=== PATIENT | female | born 1995 | race African-American/Black ===

== ENCOUNTER 2019-06-22 14:36 | Emergency (ER) | payer SELFPAY ==
[~2019-06-22] VITALS: Ht 162.6 cm; Wt 77.1 kg
[2019-06-22 14:40] VITALS: BP 116/60
--- NOTE | 2019-06-22 14:40 | NUR ---
ED Nurse Note: pt brought in to ER from home due to flu like symptoms for a week. pt aao x4 and ambulatory but weak due to general bodyache. c/o coughing with phlem, congestion, dizziness, headache, body ache 8/10. calm and cooperative and coughing consistantly. skin clean and intact. no acute distress noted. room air and vss as documented. 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
[2019-06-22] MEDS ORDERED: Ketorolac 30mg Inj IV ONE ×2 (15:00→16:45)
[2019-06-22] MEDS ORDERED: Omnipaque-300 100ml vial INJ PRN (15:00)
[2019-06-22] MEDS: Albuterol/Ipratropium 3ml neb HHN SCH ×3 (15:05→15:45)
--- NOTE | 2019-06-22 15:05 | NUR ---
Xray at bedside.
[2019-06-22 15:40] LABS: APPEARANCE,URINE SLIGHTLY CLOUDY; BILIRUBIN, URINE NEGATIVE (NEGATIVE); COLOR,URINE PALE YELLOW; GLUCOSE, URINE (UA) NEGATIVE (NEGATIVE); KETONES,URINE NEGATIVE (NEGATIVE); LEUKOCYTE ESTERASE ,URINE 1+ (NEGATIVE); NITRITE,URINE NEGATIVE (NEGATIVE); PH,URINE 7 (4.5-8.0); PROTEIN,URINE NEGATIVE (NEGATIVE); UROBILINOGEN,URINE NORMAL MG/DL (0.0-1.0)
--- NOTE | 2019-06-22 15:44 | Diagnostic Imaging Report ---
Indication: Dyspnea Comparison: None A single view chest radiograph was obtained. Findings: Cardiomediastinal appearance is within normal limits for age. The lungs are clear. Pulmonary vascularity is appropriate. The diaphragmatic contour is smooth and costophrenic angles are sharp. No pleural effusions are identified. The bones are unremarkable. Impression: No acute findings
[2019-06-22 15:52] LABS: BASOPHILS % (AUTO) 1.1 % (0.0-2.0); EOSINOPHILS % (AUTO) 5.3 % (0.0-3.0); HEMATOCRIT 34.5 % (37.0-47.0); HEMOGLOBIN 11.5 G/DL (12.0-16.0); MEAN CORPUSCULAR VOLUME 91 FL (80-99); MONOCYTES % (AUTO) 10.7 % (1.0-10.0); PLATELET COUNT 229 K/UL (150-450); RED BLOOD COUNT 3.79 M/UL (4.20-5.40); RED CELL DISTRIBUTION WIDTH 11.1 % (11.6-14.8); WHITE BLOOD COUNT 6.5 K/UL (4.8-10.8)
[2019-06-22 15:55] LABS: ANION GAP 3 mmol/L (5-15); BLOOD UREA NITROGEN 6 mg/dL (7-18); CALCIUM 8.5 MG/DL (8.5-10.1); CARBON DIOXIDE 32 MMOL/L (21-32); CHLORIDE 105 MMOL/L (98-107); CREATININE 0.7 MG/DL (0.55-1.30); POTASSIUM 3.6 MMOL/L (3.5-5.1); SODIUM 140 MMOL/L (136-145)
--- NOTE | 2019-06-22 16:00 | NUR ---
ED Nurse Note: pt drank CT scan solution.
[2019-06-22 16:04] LABS: ALANINE AMINOTRANSFERASE 12 U/L (12-78); ALBUMIN 3.2 G/DL (3.4-5.0); ALBUMIN/GLOBULIN RATIO 0.9 (1.0-2.7); ALKALINE PHOSPHATASE 69 U/L (46-116); ASPARTATE AMINO TRANSFERASE 13 U/L (15-37); BILIRUBIN,TOTAL 0.3 MG/DL (0.2-1.0)
--- NOTE | 2019-06-22 17:44 | NUR ---
ED Nurse Note: pt went down for CT scan by WC in stable condition.
--- NOTE | 2019-06-22 18:10 | NUR ---
ED Nurse Note: pt came back from CT scan in stable condition.
--- NOTE | 2019-06-22 18:58 | NUR ---
HAND-OFF: Report given to ALISA Manuel. no orders to carry at this moment. waiting for CT scan.
--- NOTE | 2019-06-22 19:03 | Diagnostic Imaging Report ---
INDICATION: Chest and abdominal pain. Cough. Congestion. Dizziness headache. History of brain tumor TECHNIQUE: Continuous helical transaxial imaging of the chest, abdomen and pelvis was obtained from the lung bases to the pubic symphysis during intravenous contrast administration. Multiple phases of enhancement obtained. Coronal 2-D reformats were also obtained. Study obtained in a Siemens sensation [address] Automatic Exposure Control was utilized. Total Dose length Product (DLP): [address] Dose Index Volume (CTDIvol): 234 mGy COMPARISON: None FINDINGS: CT CHEST: The lungs are clear. No consolidation to suggest pneumonia. No lung nodules are identified. No pleural or pericardial effusion seen. No adenopathy appreciated. The heart is unremarkable. The axilla appear clear bilaterally. The liver is unremarkable. There is no free fluid. There is a 7 mm cyst within the left kidney. Bowel gas pattern appears normal nonobstructive. There is a tiny umbilical hernia containing fat. There is thickening of the wall the urinary bladder which is diffusely nondistended. Normal appendix noted. There is a suggestion of a small left ovarian cyst measuring about 1.7 cm. There is no evidence of bowel obstruction. No adenopathy seen in the abdomen or pelvis. Gallbladder is unremarkable. IMPRESSION: No acute findings in the chest abdomen or pelvis identified. No evidence of metastatic neoplasm on the basis of this study. Left renal cyst Suggestion of a small left ovarian cyst. This may be confirmed by ultrasound. Tiny umbilical hernia containing fat. [facility] has communicated the preliminary results to the Emergency Department. Their findings are largely concordant with this report. The CT scanner at [facility] is accredited by the [employer] and the scans are performed using dose optimization techniques as appropriate to a performed exam including Automatic Exposure control.
--- NOTE | 2019-06-22 19:13 | Emergency Room Report ---
History of Present Illness General Chief Complaint: Flu Like Symptoms Source: Patient Present Illness HPI 23-year-old female with history of pituitary gland tumor in 2018 and recently being rediagnosed with pituitary tumor new onset here complaining of 1 week of body ache, productive cough. Patient was brought in by the paramedics. Patient reports chest pain secondary to cough however denies palpitation, dizziness and headache. Denies blurry vision. Reports that she is currently under the care of of an oncologist and has not yet decided any assessment regarding the brain tumor as unsure whether we will have to proceed with chemotherapy versus resection. Complains of epigastric pain with nausea however denies diarrhea, bloody emesis, fever and chills at this time. Has not taken any [id number] medication for symptom relief. Complains of weakness and body ache. Complains of urinary frequency however denies dysuria, hematuria. Reports that has history of endometriosis and was recently discontinued on hormonal therapy due to return of her brain tumor. Reports that her menstruation just ended a day ago. Denies all other associated symptoms. Allergies: Coded Allergies: No Known Allergies (Unverified , 06/22/19) Patient History Past Medical History: see triage record Past Surgical History: unable to obtain Pertinent Family History: none Last Menstrual Period: 06/2019 Now: No : 1 Para: 1 Immunizations: UTD Reviewed Nursing Documentation: PMH: Agreed; PSxH: Agreed Nursing Documentation-PMH Hx Cardiac Problems: No - Brain tumor Hx Gastrointestinal Problems: No - endometriosis Review of Systems All Other Systems: negative except mentioned in HPI Physical Exam Vital Signs Date Time Temp Pulse Resp B/P (MAP) Pulse Ox O2 Delivery O2 Flow Rate FiO2 06/22/19 14:30 99.0 66 18 116/60 (78) 100 Room Air 06/22/19 15:16 21 Sp02 EP Interpretation: reviewed, normal General Appearance: no apparent distress, alert, GCS 15, non-toxic Head: normocephalic, atraumatic Eyes: bilateral eye normal inspection, bilateral eye PERRL ENT: hearing grossly normal, normal pharynx, no angioedema, normal voice Neck: full range of motion, supple, supple/symm/no masses Respiratory: chest non-tender, lungs clear, normal breath sounds, no rhonchi, no respiratory distress, no retraction, no wheezing, speaking full sentences Cardiovascular #1: regular rate, rhythm, no edema, no murmur, normal capillary refill Gastrointestinal: normal inspection, normal bowel sounds, non tender, soft, no mass, no organomegaly, no peritonitis, no bruit, non-distended, no guarding, no hernia, no pulsatile mass Rectal: deferred Genitourinary: no CVA tenderness Musculoskeletal: back normal, gait/station normal, normal range of motion, non- tender, no calf tenderness, pelvis stable Neurologic: alert, oriented x3, responsive, motor strength/tone normal, sensory intact, speech normal Psychiatric: judgement/insight normal, memory normal, mood/affect normal, no suicidal/homicidal ideation Skin: no rash Lymphatic: no adenopathy Medical Decision Making PA Attestation Diagnosis and treatment plans were reviewed and discussed with my supervising physician Dr. Lindsey Diagnostic Impression: Primary Impression: Atypical pneumonia Additional Impression: UTI (urinary tract infection) ER Course 23-year-old female with history of pituitary gland tumor in 2018 and recently being rediagnosed with pituitary tumor new onset here complaining of 1 week of body ache, productive cough. Patient was brought in by the paramedics. Patient reports chest pain secondary to cough however denies palpitation, dizziness and headache. Denies blurry vision. Reports that she is currently under the care of of an oncologist and has not yet decided any assessment regarding the brain tumor as unsure whether we will have to proceed with chemotherapy versus resection. Complains of epigastric pain with nausea however denies diarrhea, bloody emesis, fever and chills at this time. Has not taken any [id number] medication for symptom relief. Complains of weakness and body ache. Complains of urinary frequency however denies dysuria, hematuria. Reports that has history of endometriosis and was recently discontinued on hormonal therapy due to return of her brain tumor. Reports that her menstruation just ended a day ago. Denies all other associated symptoms. Ddx considered but are not limited to: [place], Angina, COPD, metastatic cancer, atypical pneumonia, community acquired pneumonia, hospital-acquired pneumonia, urinary tract infection Vital signs: are WNL, pt. is afebrile H&PE are most consistent with atypical pneumonia, incidental finding of UTI ORDERS: EKG, Chest XR, cardiac labs, CT chest, abdomen, pelvis with contrast, CBC, CMP, lipase,cefdinir ED INTERVENTIONS: Toradol, Tylenol, NS bolus, Zofran, Rocephin DISCHARGE: At this time pt. is stable for d/c to home. Will provide printed patient care instructions, and any necessary prescriptions. Care plan and follow up instructions have been discussed with the patient prior to discharge. Follow-up with primary care provider, also follow-up with your oncologist and I suggest you get a PET scan done. If worsening symptoms return to emergency room. EKG Diagnostic Results Rate: normal Rhythm: NSR ST Segments: no acute changes Other Impression no acute ST changes Chest X-Ray Diagnostic Results Chest X-Ray Diagnostic Results : Chest X-Ray Ordered: Yes # of Views/Limited/Complete: 1 View Indication: Shortness of Breath EP Interpretation: Yes PA Xray: Interpretation reviewed, by supervising MD, and agrees with findings. Interpretation: no consolidation, no effusion, no pneumothorax Impression: No acute disease Electronically Signed by: Addi Ureña PA-C CT/MRI/US Diagnostic Results CT/MRI/US Diagnostic Results : Imaging Test Ordered: CT chest abdomen pelvis with contrast Impression Within normal limits Last Vital Signs Date Time Temp Pulse Resp B/P (MAP) Pulse Ox O2 Delivery O2 Flow Rate FiO2 06/22/19 17:17 98.9 06/22/19 15:16 77 18 100 Room Air 21 70 18 100 06/22/19 14:40 116/60 Disposition: HOME, SELF-CARE Condition: Stable Scripts Cefdinir (CEFDINIR) 300 Mg Capsule 300 MG PO BID for 10 Days, #20 CAP Prov: Addi Silva 06/22/19 Referrals: NOT CHOSEN IPA/,REFERRING (PCP) Patient Instructions: Community-Acquired Pneumonia, Adult, Urinary Tract Infection, [id number] Additional Instructions: Follow-up with your oncologist regarding cancer, take medication as directed, if worsening symptoms return to the emergency room. Addi Silva Jun 22, 2019 19:13
[2019-06-22] MEDS ORDERED: cefTRIAXone 1 GM in NS 55 ML IVPB ONE (19:15)
[2019-06-22] MEDS ORDERED: CEFDINIR300 MG PO (19:20)
[2019-06-22 20:10] VITALS: BP 118/65
--- NOTE | 2019-06-22 20:10 | NUR ---
ED Nurse Note: Pt cleared by health care Provider for discharge. DC instructions and prescription were given and explained to pt who verbalized understanding of teachings. All medical devices such as ID band and IV removed. Pt is AAO x4, ambulatory and left with all personal belongings.
== END 2019-06-22 20:10 | disposition home or self-care (01) ==
LOC: EDBD 14:36 → EMR 15:03
DX: J18.9 Pneumonia, unspecified organism (principal); N39.0 Urinary tract infection, site not specified; R07.9 Chest pain, unspecified; R10.13 Epigastric pain
CPT/HCPCS: 36415; 71045; 71260; 74177; 80053; 80307; 81003; 81025; 83690; 85025; 85610; 85730; 86850; 86900; 86901; 87086; 93005; 94640; 94664; 96361; 96365; 96375; 96376; 99284; J0696; J1885; J2405; Q9967; J7030; J7620